=== PATIENT | male | born 1985 | race Caucasian/White ===

== ENCOUNTER 2024-03-15 09:48 | Outpatient (CLI) | payer OTHER, SELFPAY ==
--- NOTE | 2024-03-15 11:00 | NEURO_ITS ---
Impression: # Complains of numbness of hands. # Bilateral moderate Carpal Tunnel Syndrome. # No ulnar neuropathy. # Mildly abnormal needle/EMG exam. Nerve Conduction Studies Anti Sensory Summary Table Stim Site NR Peak (ms) P-T Amp (?V) Site1 Site2 Delta-P (ms) Dist (cm) Jerome (m/s) Left Median Anti Sensory (2-3nd Digit) Wrist 4.2 18.7 Wrist 2-3nd Digit 4.2 14.0 33 Wrist 4.5 21.0 Wrist 2-3nd Digit 4.2 14.0 33 Right Median Anti Sensory (2-3nd Digit) Wrist 4.8 37.4 Wrist 2-3nd Digit 4.8 14.0 29 Wrist 4.8 40.7 Wrist 2-3nd Digit 4.8 14.0 29 Left Radial Anti Sensory (Base 1st Digit) Wrist 1.6 40.4 Wrist Base 1st Digit 1.6 0.0 Right Radial Anti Sensory (Base 1st Digit) Wrist 1.9 28.9 Wrist Base 1st Digit 1.9 0.0 Left Ulnar Anti Sensory (5th Digit) Wrist 2.1 66.1 Wrist 5th Digit 2.1 14.0 67 Right Ulnar Anti Sensory (5th Digit) Wrist 2.2 66.0 Wrist 5th Digit 2.2 14.0 64 Motor Summary Table Stim Site NR Onset (ms) O-P Amp (mV) Site1 Site2 Delta-0 (ms) Dist (cm) Jerome (m/s) Left Median Motor (Abd Poll Brev) Wrist 5.7 4.8 Elbow Wrist 4.4 26.0 59 Elbow 10.1 2.0 Right Median Motor (Abd Poll Brev) Wrist 5.3 4.5 Elbow Wrist 4.9 28.0 57 Elbow 10.2 4.4 Left Ulnar Motor (Abd Dig Minimi) Wrist 2.4 8.4 A Elbow Wrist 4.9 29.0 59 A Elbow 7.3 7.3 Right Ulnar Motor (Abd Dig Minimi) Wrist 2.2 6.7 A Elbow Wrist 4.9 29.0 59 A Elbow 7.1 6.0 F Wave Studies NR F-Lat (ms) L-R F-Lat (ms) Left Median (Mrkrs) (Abd Poll Brev) 30.65 1.12 Right Median (Mrkrs) (Abd Poll Brev) 29.53 1.12 Left Ulnar (Mrkrs) (Abd Dig Min) 27.19 0.08 Right Ulnar (Mrkrs) (Abd Dig Min) 27.11 0.08 EMG Side Muscle Nerve Root Ins Act Fibs Amp Dur Recrt Comment Right 1stDorInt Ulnar C8-T1 Nml Nml Nml Nml Nml Right Ext Indicis Radial (Post Int) C7-8 Nml Nml Nml Nml Nml Right Ext Digitorum Radial (Post Int) C7-8 Nml Nml Nml Nml Nml Right BrachioRad Radial C5-6 Nml Nml Nml Nml Nml Right PronatorTeres Median C6-7 Nml Nml Nml Nml Nml Right Abd Poll Brev Median C8-T1 Nml Nml Nml <12ms + Right ABD Dig Min Ulnar C8-T1 Nml Nml Nml Nml Nml Left 1stDorInt Ulnar C8-T1 Nml Nml Nml Nml Nml Left Ext Indicis Radial (Post Int) C7-8 Nml Nml Nml Nml Nml Left Ext Digitorum Radial (Post Int) C7-8 Nml Nml Nml Nml Nml Left BrachioRad Radial C5-6 Nml Nml Nml Nml Nml Left PronatorTeres Median C6-7 Nml Nml Nml Nml Nml Left Abd Poll Brev Median C8-T1 Nml Nml Nml <12ms + Left ABD Dig Min Ulnar C8-T1 Nml Nml Nml Nml Nml MTDD
== END 2024-03-15 09:49 | disposition home or self-care (01) ==
PROVIDERS: PCP Internal Medicine; Visit Provider Internal Medicine
DX: G56.03 Carpal tunnel syndrome, bilateral upper limbs (principal)
CPT/HCPCS: 95886; 95911

== ENCOUNTER 2024-11-09 01:38 | Day surgery (SDC) | payer OTHER, SELFPAY ==
[2024-11-02 09:43] VITALS: BMI 41.0
--- NOTE | 2024-11-02 09:44 | PC.NURSE ---
Addendum entered by Javi Sanders RN 11/02/24 09:52: Please use steroid inhaler morning of surgery and if needed may use albuterol also. Original Note: Report to the Outpatient Waiting Room, entrance under the green pavilion located off [facility], at time _0830_ on date _[id number]_. Planned Procedure Time: _1030_.? Time changes happen often and if your time is changed the preop area will call you the afternoon before. - You and your visitor will be asked to self-screen and do not enter if you have any COVID symptoms. Please call surgeon if you need to reschedule. - A mask is optional within the hospital at this time. - No food or drink from midnight until time of surgery and no smoking. This includes no chewing gum, candy or mints. Take only the following medications with a SIP of water on the morning of surgery: ___None DO NOT STOP ANY OF YOUR OTHER PRESCRIPTION MEDICATIONS PRIOR TO SURGERY EXCEPT THE FOLLOWING Medications to discontinue per physician None Date to take last dose Please no make-up, nail ghanaian, hairspray, perfume, deodorant, or body powder the day of surgery.? No jewelry (including any body piercings) or valuables the day of surgery, leave them at home.? Please take a shower or bath the night before, or the morning of, surgery with an antibacterial soap.? Wear comfortable, loose fitting clothing. - Jewelry must be removed prior to entering the operating room.? Rings and piercings that are not removed may be cut off. - The hospital will not accept responsibility for valuables.? - Please leave all valuables, including medications, at home the day of surgery. If you are going home after surgery, a licensed dump truck driver off highway must drive you home.? - NO public transportation without another adult if you receive anesthesia. - We recommend that an adult stay with you for 24 hours following discharge. - We also recommend that you do not drive, make important decision, drink alcoholic beverages, or take any drugs that were not prescribed by your health care provider for at least 24 hours after your discharge time. Follow any additional instructions given to you from your surgeon. Telephone instructions given to _Caleb__and asked if any additional questions and then verbalized understanding. Patient advised to call surgeon office or pre surgery nurse liaison [phone] if any additional questions.
--- NOTE | 2024-11-09 06:50 | P.HP_ITS ---
History of Present Illness History of Present Illness Chief complaint: right carpal tunnel syndrome Narrative: Patient seen and examined in pre-operative holding area. No interval change in medical history or symptoms. Patient recalls previous discussion of benefits and alternatives to procedure. Continues to desire to proceed with right endoscopic possible open carpal tunnel release . Reviewed procedure, post-op expectations and risks including but not limited to bleeding, infection, injury to tendon/ner ve/vessel, decreased hand function, stiffness, RSD, no change or worsening of symptoms. I discussed the possible use of assistants and their participation in the case. Patient stated understanding and signed the consent form wishing to proceed. Review of Systems Review of Systems: All systems reviewed & are unremarkable except as noted in HPI and below PMFSH Family History Family History (Updated 04/12/24 @ 16:17 by Laura Barron CMA) Father Hypertension Cancer Social History Social History (Updated 04/12/24 @ 16:15 by Laura Barron CMA) Years smoked: 20 Smoking status: Current some day smoker Tobacco type: cigarettes Additional smoking assessment comments: 1 pack a week. Alcohol intake: current Drinks per week: 4 Substance use: current Substance use type: marijuana Other substance usage details: Daily Do You Feel Safe in your Home?: Yes Lack of Transportation: No Lack of Food: Never True Current Housing: I Have Housing Concerned About Future Housing: No Difficulty Paying Gas/Electric Bills: No Difficulty Paying for Meds: No Currently Unemployed: No Education: Trade/Vocational Certificate Difficulty w/ Childcare or Family Care: No Living arrangements: with family Spiritual care concerns: No Meds Home Medications and Allergies Home Medications ?Medication ?Instructions ?Recorded ?Confirmed ?Type albuterol sulfate 90 mcg/actuation 1 puff inhalation Q4H PRN 04/12/24 11/02/24 History aerosol inhaler shortness of breath or wheezing cyclobenzaprine 10 mg tablet 10 mg PO BID PRN spasms 04/12/24 11/02/24 History hydrocodone 7.5 mg-acetaminophen 1 tablet PO Q6H PRN pain 04/12/24 11/02/24 History 325 mg tablet testosterone enanthate 75 mg/0.5 75 mg subcut WEEKLY 04/12/24 11/02/24 History mL subcutaneous auto-injector fluticasone 100 mcg-salmeterol 50 1 inh inhalation BID 11/02/24 11/02/24 History mcg/dose blistr powdr for inhalation (Wixela Inhub) Allergies Allergy/AdvReac Type Severity Reaction Status Date / Time ibuprofen Allergy Mild ITCHY, RASH Verified 11/02/24 09:33 Exam Narrative: unchanged Assessment and Plan Assessment and plan (1) Bilateral carpal tunnel syndrome: Code(s): G56.03 - Carpal tunnel syndrome, bilateral upper limbs Status: Acute Assessment and Plan: cont as above
--- NOTE | 2024-11-09 06:50 | W.PM.PROC2 ---
Procedure Note - Detailed Date of Procedure 11/09/24 Pre-op Diagnosis right carpal tunnel syndrome Post-op Diagnosis Same Procedure Performed right ectr Surgeon Jaspreet Mason MD Driveway Attendant ghulam aviles pa-c Anesthesia MAC Description of Procedure INFORMED CONSENT: The patient was seen and examined and marked in the pre-op area.? The patient signed the consent form. PROCEDURE IN DETAIL:The patient taken back to OR on the stretcher in supine position. Time out performed with anesthesia, surgeon and staff agreeing on patient's name site and surgery to be performed SCDs were placed on the lower extremities and inflated. A tourniquet was placed on {right} upper extremity and antibiotics given IV After anesthesia administered sedation I injected {4}cc 1%lido with epi and 0.5% marcaine plain at the operative site The?{right upper extremity}?was prepped and draped in sterile fashion the??{right upper extremity} was? exsanguinated with Esmarch bandage and tourniquet inflated to 250mmHg I made a transverse incision in the {right} volar distal wrist crease through skin and dermis with 15 blade scalpel.? Littler scissors spread down to antebrachial fascia. A small incision was made in antebrachial fascia allowing access to Carpal tunnel. I proceeded with sequential dilation staying in line with the ring finger and hugging the hook of the hamate.? I then used the synovial elevator to free any adhesions from the underside of the transverse carpal ligament. Next I was able to insert the Microaire endoscopic carpal tunnel device with direct visualization of the transverse fibers on the monitor and proceeded with complete segmental retrograde release of the ligament in its entirety.? A moderate amount of synovitis was noted in the carpal tunnel. I irrigated with normal saline and closed with 4-0 monocryl for dermis and subcuticular closure. A dressing of Dermabond, 4x4, kristine, and a volar splint was applied for patient safety, security, and comfort and secured with an cesar bandage after the tourniquet was let down noting the hand was warm and well perfused. The patient was then awaken from anesthesia and transferred to the recovery room in stable condition.? Complications - none EBL- 0cc Disposition - home in stable conditions ghulam traci pa-c was essential for positioning, retraction, closure and dressing placement [facility] Billing Surgery - Charge Forward: Surgery Billing ([id number] for ghulam)
[2024-11-09 09:00] VITALS: BP 143/90; PULSE 95; RESP 14; TEMP 35.6; O2SAT 97
--- NOTE | 2024-11-09 10:12 | P.PNAN_ITS ---
Anes - Initial Pre Proc Eval Procedure: Operation Date: 11/09/24 10:30 Proposed Procedures p Right Endoscopic Carpal Tunnel Release, Possible Open - Jaspreet Mason MD Date/Time: 11/09/24 10:12 Surgeon: Jaspreet Mason MD Pre Op Diagnosis: right carpal tunnel syndrome Patient Data Age: 39 Gender: M Height: 1.75 m Weight: 125 kg Allergies Allergy/AdvReac Type Severity Reaction Status Date / Time ibuprofen Allergy Mild ITCHY, RASH Verified 11/02/24 09:33 Home Medications ?Medication ?Instructions ?Recorded ?Confirmed ?Type albuterol sulfate 90 mcg/actuation 1 puff inhalation Q4H PRN 04/12/24 11/09/24 History aerosol inhaler shortness of breath or wheezing cyclobenzaprine 10 mg tablet 10 mg PO BID PRN spasms 04/12/24 11/09/24 History hydrocodone 7.5 mg-acetaminophen 1 tablet PO Q6H PRN pain 04/12/24 11/02/24 History 325 mg tablet testosterone enanthate 75 mg/0.5 75 mg subcut WEEKLY 04/12/24 11/02/24 History mL subcutaneous auto-injector fluticasone 100 mcg-salmeterol 50 1 inh inhalation BID 11/02/24 11/09/24 History mcg/dose blistr powdr for inhalation (Wixela Inhub) Patient hx anesthesia problems: none Family hx anesthesia problems: none Results Review: All pre-operative results and documents have been reviewed as part of the pre- operative evaluation. PMFSH Family History Family History (Updated 04/12/24 @ 16:17 by Laura Barron CMA) Father Hypertension Cancer Social History Social History (Updated 04/12/24 @ 16:15 by Laura Barron CMA) Years smoked: 20 Smoking status: Current some day smoker Tobacco type: cigarettes Additional smoking assessment comments: 1 pack a week. Alcohol intake: current Drinks per week: 4 Substance use: current Substance use type: marijuana Other substance usage details: Daily Do You Feel Safe in your Home?: Yes Lack of Transportation: No Lack of Food: Never True Current Housing: I Have Housing Concerned About Future Housing: No Difficulty Paying Gas/Electric Bills: No Difficulty Paying for Meds: No Currently Unemployed: No Education: Trade/Vocational Certificate Difficulty w/ Childcare or Family Care: No Living arrangements: with family Spiritual care concerns: No Anes - Eval Final PreProcedure Day of Procedure 11/09/24 10:12 Patient weight: normal and morbidly obese Heart: regular rate and rhythm Lungs: clear to auscultation Airway: Mallampati scale class II Neurological: alert and oriented Last oral intake: >/= 8 hours ASA classification: III Emergent: no Anesthetic plan: proceed Anesthesia type and monitoring: general GIVS and standard monitoring Results Review: All pre-operative results and documents have been reviewed as part of the pre- operative evaluation. Informed Consent: The patient's anesthetic plan and its attendant risks and benefits were discussed with the patient/family/POA. Questions were solicited and answers provided to the satisfaction of the patient/family/POA.
[2024-11-09] MEDS: ceFAZolin 3 GM/D5W 100 ML 100 ML IVPB (10:46)
[2024-11-09] MEDS: LIDO 1%/EPINEPHRINE 1:100,000 50 ML VIAL 10 ML INFILTRATE (10:56)
[2024-11-09 11:16] VITALS: BP 130/76; PULSE 91; RESP 16; O2SAT 94
[2024-11-09] MEDS: LACTATED RINGERS 1,000 ML 30 ML IV CONT (11:16)
[2024-11-09 11:46] VITALS: BP 117/79; PULSE 90; RESP 16; O2SAT 93
[2024-11-09] MEDS: oxyCODONE HCL (*CRX) 5 MG TAB IR PO (12:00)
[2024-11-09 12:15] VITALS: BP 117/81; PULSE 90; RESP 18
== END 2024-11-09 12:27 | disposition home or self-care (01) ==
PROVIDERS: PCP Internal Medicine; Visit Provider Plastic Surgery
PROC: 01N54ZZ Release Median Nerve, Percutaneous Endoscopic Approach (ICD-10-PCS; CPT 29848; principal; 2024-11-09 10:30)
DX: G56.01 Carpal tunnel syndrome, right upper limb (principal); F17.210 Nicotine dependence, cigarettes, uncomplicated; F12.90 Cannabis use, unspecified, uncomplicated
CPT/HCPCS: 29848; A9270; J0690; J1100; J2003; J2004; J2405; J2704; J7120